=== PATIENT | female | born 1940 | race Two or more races ===

== ENCOUNTER 2021-12-28 12:23 | Emergency (ER) | payer OTHER ==
[2021-12-28 12:44] VITALS: BP 100/66; PULSE 83; RESP 18; TEMP 98.1; BMI 50.8
[2021-12-28] MEDS ORDERED: ACETAMINOPHEN 1000 MG/100 ML BAG IVPB ONE (14:18)
[2021-12-28] MEDS ORDERED: LIDOCAINE 5% TOPICAL PATCH TP ONE (14:18)
[2021-12-28] MEDS ORDERED: MECLIZINE HCL 25 MG TABLET (FP) PO ONE (14:19)
[2021-12-28] MEDS ORDERED: LIDOCAINE 5% TOPICAL PATCH ONE (15:10)
[2021-12-28] MEDS ORDERED: MECLIZINE HCL 25 MG TABLET (FP) ONE (15:10)
[2021-12-28] MEDS ORDERED: ACETAMINOPHEN INJECTION 100 ML IVPB ONE (15:10)
[2021-12-28 15:53] LABS: EOS % 1.9 % (0-4.5); HEMATOCRIT 38.1 % (32.4-45.2); HEMOGLOBIN 12.6 GM/dL (10.7-15.3); LYMPH % 30.9 % (8-40); MCH 31.5 pg (25.7-33.7); MCHC 33.1 g/dl (32.0-36.0); MEAN CELL VOLUME 95.3 fl (80-96); MEAN PLT VOLUME 8.9 fl (7.5-11.1); NEUT % 52.2 % (42.8-82.8); PLATELET COUNT 306 10^3/uL (134-434); WHITE BLOOD COUNT 6.2 K/mm3 (4.0-10.0)
[2021-12-28 16:06] LABS: INR 0.99 (0.83-1.09); PROTHROMBIN TIME (PATIENT) 11.4 SEC (9.7-13.0)
[2021-12-28 16:19] LABS: ALBUMIN 3.1 g/dl (3.4-5.0); CALCIUM 9.8 mg/dL (8.5-10.1)
[2021-12-28 16:24] LABS: BILIRUBIN,TOTAL 0.8 mg/dL (0.2-1); TOT PROT 7.1 g/dl (6.4-8.2)
[2021-12-28 18:37] LABS: PH,URINE 5.5 (5.0-8.0); URINE APPEARANCE CLEAR; URINE BILIRUBIN NEGATIVE (NEGATIVE); URINE COLOR YELLOW; URINE GLUCOSE (UA) NEGATIVE (NEGATIVE); URINE KETONE NEGATIVE (NEGATIVE); URINE LEUK ESTERASE NEGATIVE (NEGATIVE); URINE NITRITE NEGATIVE (NEGATIVE); URINE PROTEIN NEGATIVE (NEGATIVE); URINE UROBILINOGEN 0.2 mg/dL (0.2-1.0)
[2021-12-28] MEDS ORDERED: LIDOCAINE PATCH REMOVAL MC SCH (22:00)
== END 2021-12-28 20:23 | disposition home or self-care (01) ==
LOC: JER 12:23
PROC: 3E033NZ Introduction of Analgesics, Hypnotics, Sedatives into Peripheral Vein, Percutaneous Approach (ICD-10-PCS; principal; 2021-12-28)
DX: M54.2 Cervicalgia (principal)
CPT/HCPCS: 36415; 70450-TC; 72125-TC; 80053; 81003; 84484; 85025; 85610; 87086; 93005; 93010; 99285-25

== ENCOUNTER 2022-05-10 09:46 | Observation (INO) | payer OTHER ==
[2022-05-10 10:05] VITALS: BMI 41.1
[2022-05-10] MEDS ORDERED: LIDOCAINE 5% TOPICAL PATCH TP ONE (10:14)
[2022-05-10] MEDS ORDERED: IBUPROFEN 600 MG TABLET (FP) PO ONE ×2 (10:14→10:28)
[2022-05-10] MEDS ORDERED: LIDOCAINE 5% TOPICAL PATCH ONE (10:28)
[2022-05-10] MEDS ORDERED: morphine CARPU-JECT 2 MG/1 ML DISP.SYRIN IVPUSH ONE (15:49)
[2022-05-10 17:07] LABS: BASO % 0.2 % (0-2.0); HEMOGLOBIN 13.9 GM/dL (10.7-15.3); LYMPH % 9.2 % (8-40); MCH 31.9 pg (25.7-33.7); MCHC 33.9 g/dl (32.0-36.0); MEAN PLT VOLUME 10.1 fl (7.5-11.1); MONO % 8.2 % (3.8-10.2); NEUT % 82.4 % (42.8-82.8); PLATELET COUNT 195 10^3/uL (134-434); RBC 4.36 M/mm3 (3.60-5.2); RDW 16.1 % (11.6-15.6); URINE APPEARANCE CLEAR; URINE BILIRUBIN NEGATIVE (NEGATIVE); URINE COLOR YELLOW; URINE GLUCOSE (UA) NEGATIVE (NEGATIVE); URINE KETONE NEGATIVE (NEGATIVE); URINE LEUK ESTERASE NEGATIVE (NEGATIVE); URINE NITRITE NEGATIVE (NEGATIVE); URINE PROTEIN NEGATIVE (NEGATIVE); URINE UROBILINOGEN 0.2 mg/dL (0.2-1.0); WHITE BLOOD COUNT 17.2 K/mm3 (4.0-10.0)
[2022-05-10 17:41] LABS: CALCIUM 9.5 mg/dL (8.5-10.1)
[2022-05-10 17:42] LABS: BLOOD UREA NITROGEN 32.2 mg/dL (7-18)
[2022-05-10 17:46] LABS: BILIRUBIN,TOTAL 0.9 mg/dL (0.2-1)
[2022-05-10 17:47] LABS: TOT PROT 6.4 g/dl (6.4-8.2)
[2022-05-10] MEDS ORDERED: SODIUM CHLORIDE 500 ML IV STA (18:32)
[2022-05-10] MEDS ORDERED: ACETAMINOPHEN 1000 MG/100 ML BAG IVPB PRN (18:32)
[2022-05-10] MEDS ORDERED: SODIUM ZIRCONIUM CYCLOSILICATE (LOKELMA) 5 GM PACKET PO ONE (18:45)
[2022-05-10] MEDS ORDERED: SODIUM ZIRCONIUM CYCLOSILICATE (LOKELMA) 5 GM PACKET ONE (19:43)
[2022-05-10] MEDS ORDERED: LIDOCAINE PATCH REMOVAL MC ONE (22:00)
[2022-05-10] MEDS: LIDOCAINE PATCH REMOVAL MC SCH (23:20)
[2022-05-11] MEDS ORDERED: INSULIN (NOVOLOG) ASPART 100 UNITS/ML 10ML VIAL ONE ×3 (06:00→17:00)
[2022-05-11] MEDS: INSULIN SLIDING SCALE (NOVOLOG) 1 VIAL SQ SCH ×3 (06:06→16:52)
[2022-05-11 08:40] LABS: HEMATOCRIT 38.5 % (32.4-45.2); HEMOGLOBIN 12.8 GM/dL (10.7-15.3); MCH 31.1 pg (25.7-33.7); MCHC 33.2 g/dl (32.0-36.0); MEAN CELL VOLUME 93.5 fl (80-96); MEAN PLT VOLUME 10.3 fl (7.5-11.1); PLATELET COUNT 189 10^3/uL (134-434); RBC 4.11 M/mm3 (3.60-5.2); RDW 15.6 % (11.6-15.6); WHITE BLOOD COUNT 14.8 K/mm3 (4.0-10.0)
[2022-05-11 09:13] LABS: BLOOD UREA NITROGEN 31.3 mg/dL (7-18); CALCIUM 8.9 mg/dL (8.5-10.1)
[2022-05-11 09:16] LABS: CREATININE 0.9 mg/dL (0.55-1.3)
[2022-05-11] MEDS ORDERED: KETOROLAC TROMETHAMINE 15 MG/ML VIAL IM ONE (10:45)
[2022-05-11] MEDS: PANTOPRAZOLE 40 MG TABLET PO SCH (11:49)
[2022-05-11] MEDS: LIDOCAINE 5% TOPICAL PATCH TP SCH (11:50)
[2022-05-11] MEDS: ENOXAPARIN NA (PORCINE) 40 MG/0.4 ML DISP.SYRIN SQ SCH (11:51)
[2022-05-11] MEDS: GABAPENTIN 100 MG CAPSULE PO SCH ×2 (14:41→22:17)
[2022-05-11] MEDS: NAPROXEN 250 MG TABLET PO SCH (22:16)
[2022-05-11] MEDS: LIDOCAINE PATCH REMOVAL MC SCH (22:19)
[2022-05-12] MEDS: INSULIN SLIDING SCALE (NOVOLOG) 1 VIAL SQ SCH ×3 (06:35→16:50)
[2022-05-12] MEDS: GABAPENTIN 100 MG CAPSULE PO SCH ×3 (06:36→21:48)
[2022-05-12 09:47] LABS: HEMATOCRIT 38.1 % (32.4-45.2); HEMOGLOBIN 13.2 GM/dL (10.7-15.3); MCH 32.2 pg (25.7-33.7); MCHC 34.5 g/dl (32.0-36.0); MEAN CELL VOLUME 93.3 fl (80-96); MEAN PLT VOLUME 9.5 fl (7.5-11.1); PLATELET COUNT 199 10^3/uL (134-434); RBC 4.08 M/mm3 (3.60-5.2); RDW 15.4 % (11.6-15.6); WHITE BLOOD COUNT 11.9 K/mm3 (4.0-10.0)
[2022-05-12] MEDS: LIDOCAINE 5% TOPICAL PATCH TP SCH (10:01)
[2022-05-12] MEDS: ENOXAPARIN NA (PORCINE) 40 MG/0.4 ML DISP.SYRIN SQ SCH (10:01)
[2022-05-12] MEDS: PANTOPRAZOLE 40 MG TABLET PO SCH (10:02)
[2022-05-12] MEDS: NAPROXEN 250 MG TABLET PO SCH ×2 (10:03→21:49)
[2022-05-12 10:19] LABS: ALBUMIN 2.8 g/dl (3.4-5.0); BLOOD UREA NITROGEN 32.8 mg/dL (7-18); CALCIUM 8.9 mg/dL (8.5-10.1)
[2022-05-12 10:23] LABS: BILIRUBIN,TOTAL 0.6 mg/dL (0.2-1)
[2022-05-12 10:24] LABS: CREATININE 0.9 mg/dL (0.55-1.3)
[2022-05-12] MEDS ORDERED: INSULIN (NOVOLOG) ASPART 100 UNITS/ML 10ML VIAL ONE (11:20)
[2022-05-12] MEDS: ACETAMINOPHEN 500 MG TABLET (FP) PO SCH ×2 (16:14→21:49)
[2022-05-12] MEDS: LIDOCAINE PATCH REMOVAL MC SCH (21:49)
[2022-05-13] MEDS: GABAPENTIN 100 MG CAPSULE PO SCH ×3 (06:08→21:32)
[2022-05-13] MEDS: ACETAMINOPHEN 500 MG TABLET (FP) PO SCH ×3 (06:08→21:30)
[2022-05-13] MEDS: INSULIN SLIDING SCALE (NOVOLOG) 1 VIAL SQ SCH ×3 (06:13→16:54)
[2022-05-13] MEDS: PANTOPRAZOLE 40 MG TABLET PO SCH (09:04)
[2022-05-13] MEDS: ENOXAPARIN NA (PORCINE) 40 MG/0.4 ML DISP.SYRIN SQ SCH (09:05)
[2022-05-13] MEDS: LIDOCAINE 5% TOPICAL PATCH TP SCH (09:05)
[2022-05-13] MEDS: NAPROXEN 250 MG TABLET PO SCH ×2 (09:05→21:29)
[2022-05-13 10:05] LABS: HEMATOCRIT 37.5 % (32.4-45.2); HEMOGLOBIN 12.5 GM/dL (10.7-15.3); MCH 31.4 pg (25.7-33.7); MCHC 33.3 g/dl (32.0-36.0); MEAN CELL VOLUME 94.1 fl (80-96); MEAN PLT VOLUME 10.1 fl (7.5-11.1); PLATELET COUNT 192 10^3/uL (134-434); RBC 3.98 M/mm3 (3.60-5.2); RDW 15.4 % (11.6-15.6); WHITE BLOOD COUNT 11.5 K/mm3 (4.0-10.0)
[2022-05-13 10:32] LABS: BLOOD UREA NITROGEN 38.4 mg/dL (7-18); CALCIUM 8.9 mg/dL (8.5-10.1)
[2022-05-13] MEDS: LIDOCAINE PATCH REMOVAL MC SCH (22:54)
[2022-05-14] MEDS: ACETAMINOPHEN 500 MG TABLET (FP) PO SCH ×3 (06:33→22:47)
[2022-05-14] MEDS: GABAPENTIN 100 MG CAPSULE PO SCH ×3 (06:33→22:47)
[2022-05-14] MEDS: INSULIN SLIDING SCALE (NOVOLOG) 1 VIAL SQ SCH ×3 (06:34→16:57)
[2022-05-14 09:26] LABS: HEMATOCRIT 37.3 % (32.4-45.2); HEMOGLOBIN 12.3 GM/dL (10.7-15.3); MCH 31.1 pg (25.7-33.7); MCHC 33.1 g/dl (32.0-36.0); MEAN CELL VOLUME 93.8 fl (80-96); MEAN PLT VOLUME 9.6 fl (7.5-11.1); PLATELET COUNT 178 10^3/uL (134-434); RBC 3.97 M/mm3 (3.60-5.2); RDW 15.5 % (11.6-15.6); WHITE BLOOD COUNT 9.9 K/mm3 (4.0-10.0)
[2022-05-14] MEDS: PANTOPRAZOLE 40 MG TABLET PO SCH (09:35)
[2022-05-14] MEDS: NAPROXEN 250 MG TABLET PO SCH ×2 (09:35→22:47)
[2022-05-14] MEDS: ENOXAPARIN NA (PORCINE) 40 MG/0.4 ML DISP.SYRIN SQ SCH (09:36)
[2022-05-14] MEDS: LIDOCAINE 5% TOPICAL PATCH TP SCH (09:36)
[2022-05-14 09:51] LABS: BLOOD UREA NITROGEN 31.6 mg/dL (7-18); CALCIUM 8.9 mg/dL (8.5-10.1)
[2022-05-14 09:54] LABS: CREATININE 0.8 mg/dL (0.55-1.3)
[2022-05-14] MEDS: LIDOCAINE PATCH REMOVAL MC SCH (22:47)
[2022-05-14] MEDS: MELATONIN 5 MG TABLETS PO PRN (23:52)
[2022-05-15] MEDS: GABAPENTIN 100 MG CAPSULE PO SCH (05:24)
[2022-05-15] MEDS: ACETAMINOPHEN 500 MG TABLET (FP) PO SCH ×3 (05:24→22:10)
[2022-05-15] MEDS: INSULIN SLIDING SCALE (NOVOLOG) 1 VIAL SQ SCH ×3 (06:01→17:18)
[2022-05-15] MEDS: PANTOPRAZOLE 40 MG TABLET PO SCH (09:26)
[2022-05-15] MEDS: NAPROXEN 250 MG TABLET PO SCH ×2 (09:26→22:14)
[2022-05-15] MEDS: LIDOCAINE 5% TOPICAL PATCH TP SCH (09:26)
[2022-05-15] MEDS: ENOXAPARIN NA (PORCINE) 40 MG/0.4 ML DISP.SYRIN SQ SCH (09:26)
[2022-05-15] MEDS: GABAPENTIN 300 MG CAPSULE PO SCH ×2 (14:26→22:11)
[2022-05-15] MEDS: MELATONIN 5 MG TABLETS PO PRN (22:11)
[2022-05-15] MEDS: LIDOCAINE PATCH REMOVAL MC SCH (22:11)
[2022-05-16] MEDS: INSULIN SLIDING SCALE (NOVOLOG) 1 VIAL SQ SCH ×3 (06:49→16:38)
[2022-05-16] MEDS: ACETAMINOPHEN 500 MG TABLET (FP) PO SCH ×3 (06:56→22:07)
[2022-05-16] MEDS: GABAPENTIN 300 MG CAPSULE PO SCH ×3 (06:56→22:09)
[2022-05-16] MEDS ORDERED: INSULIN (NOVOLOG) ASPART 100 UNITS/ML 10ML VIAL ONE (07:02)
[2022-05-16] MEDS: PANTOPRAZOLE 40 MG TABLET PO SCH (09:11)
[2022-05-16] MEDS: NAPROXEN 250 MG TABLET PO SCH ×2 (09:12→22:44)
[2022-05-16] MEDS: ENOXAPARIN NA (PORCINE) 40 MG/0.4 ML DISP.SYRIN SQ SCH (09:13)
[2022-05-16] MEDS: LIDOCAINE 5% TOPICAL PATCH TP SCH (09:13)
[2022-05-16] MEDS: ASPIRIN COATED 81 MG TABLET.EC PO SCH (09:14)
[2022-05-16] MEDS ORDERED: metFORMIN HCL 500 MG TABLET (FP) PO SCH (10:00)
[2022-05-16] MEDS: metFORMIN HCL 500 MG TABLET (FP) PO SCH (16:37)
[2022-05-16] MEDS ORDERED: ATORVASTATIN CA 20 MG TABLET (FP) PO SCH (22:00)
[2022-05-16] MEDS: LIDOCAINE PATCH REMOVAL MC SCH (22:09)
[2022-05-16] MEDS: MELATONIN 5 MG TABLETS PO PRN (22:09)
[2022-05-17] MEDS: metFORMIN HCL 500 MG TABLET (FP) PO SCH (06:17)
[2022-05-17] MEDS: GABAPENTIN 300 MG CAPSULE PO SCH ×2 (06:17→13:01)
[2022-05-17] MEDS: ACETAMINOPHEN 500 MG TABLET (FP) PO SCH ×2 (06:18→13:01)
[2022-05-17] MEDS: INSULIN SLIDING SCALE (NOVOLOG) 1 VIAL SQ SCH ×2 (06:20→11:18)
[2022-05-17] MEDS: NAPROXEN 250 MG TABLET PO SCH (09:14)
[2022-05-17] MEDS: ASPIRIN COATED 81 MG TABLET.EC PO SCH (09:14)
[2022-05-17] MEDS: PANTOPRAZOLE 40 MG TABLET PO SCH (09:14)
[2022-05-17] MEDS: LIDOCAINE 5% TOPICAL PATCH TP SCH (09:15)
[2022-05-17] MEDS: ENOXAPARIN NA (PORCINE) 40 MG/0.4 ML DISP.SYRIN SQ SCH (09:16)
[2022-05-17 09:24] VITALS: PULSE 85; RESP 16
[2022-05-17] MEDS ORDERED: INSULIN (NOVOLOG) ASPART 100 UNITS/ML 10ML VIAL ONE (11:16)
[2022-05-17 13:57] VITALS: BP 136/69; TEMP 97.9
== END 2022-05-17 15:45 ==
LOC: JER 09:46 → UNDOADMOB 15:50 → JERBED 15:50 → OBSVTOIN 16:35 → INTOOBSV 16:35 → JERBED 23:18 → J6S 23:18
PROVIDERS: ADMIT Internal Medicine; ATTEND Internal Medicine
PROC: 3E033NZ Introduction of Analgesics, Hypnotics, Sedatives into Peripheral Vein, Percutaneous Approach (ICD-10-PCS; principal; 2022-05-11)
PROC: 3E033GC Introduction of Other Therapeutic Substance into Peripheral Vein, Percutaneous Approach (ICD-10-PCS; 2022-05-11)
PROC: 3E0333Z Introduction of Anti-inflammatory into Peripheral Vein, Percutaneous Approach (ICD-10-PCS; 2022-05-11)
PROC: 3E0337Z Introduction of Electrolytic and Water Balance Substance into Peripheral Vein, Percutaneous Approach (ICD-10-PCS; 2022-05-11)
DX: M54.17 Radiculopathy, lumbosacral region (principal); D72.829 Elevated white blood cell count, unspecified; E87.5 Hyperkalemia; M48.07 Spinal stenosis, lumbosacral region; E11.9 Type 2 diabetes mellitus without complications; E66.01 Morbid (severe) obesity due to excess calories; Z68.41 Body mass index [BMI] 40.0-44.9, adult; Z29.8 Encounter for other specified prophylactic measures
CPT/HCPCS: 0241U-QW; 36415; 70450-TC; 71045-TC-FY; 72125-TC; 72131-TC; 72148-TC; 72170-TC-FY; 73030-TC-RT-FY; 73502-TC-RT-FY; 80048; 80053; 81003; 82962; 83036; 85025; 85027; 87086; 93005; 93010; 96361; 96372; 96374; 96375; 97116-GP; 97162-GP; 99285-25; C9803-CS; G0378; U0003; U0005